=== PATIENT | male | born 1950 | race Caucasian/White ===

== ENCOUNTER 2017-09-03 20:28 | Emergency (ER) | payer MEDICARE, OTHER ==
[~2017-09-03] VITALS: Ht 182.9 cm; Wt 77.1 kg
--- NOTE | 2017-09-04 06:40 | EKG ---
[facility] [address] [facility] [place] [address] Signed Sinus bradycardia RSR' or QR pattern in V1 suggests right ventricular conduction delay Nonspecific ST abnormality Abnormal ECG No previous ECGs available Confirmed by DM MATTHEWS MD ([id number]) on 09/04/2017 6:40:10 AM Electronically Signed By: DM MATTHEWS MD 09/04/17 0640 PATIENT NAME: GAL KHALIL Electrocardiogram DATE OF : 52 PHYSICIAN: DM MATTHEWS MD REPORT #: [id number] REPORT IS CONFIDENTIAL AND NOT TO BE RELEASED WITHOUT AUTHORIZATION
== END 2017-09-03 23:29 | disposition home or self-care (01) ==
LOC: ED 20:28
DX: R07.9 Chest pain, unspecified (principal); Z87.891 Personal history of nicotine dependence
CPT/HCPCS: 71046; 80053; 84484; 85025; 93005; 93010; 99284